=== PATIENT | female | born 1960 | race Caucasian/White ===

== ENCOUNTER 2020-08-25 19:53 | Emergency (ER) | payer SELFPAY ==
[2020-08-25] MEDS ORDERED: ACETAMINOPHEN WITH CODEINE 1 TAB TAB ONE (22:10)
[2020-08-25] MEDS ORDERED: KETOROLAC 30MG VIAL (30MG/ML) ONE (22:10)
== END 2020-08-25 22:25 | disposition home or self-care (01) ==
LOC: EDH 19:53
DX: S80.01XA Contusion of right knee, initial encounter (principal); R51.9 Headache, unspecified; M54.2 Cervicalgia; I10 Essential (primary) hypertension; Z88.1 Allergy status to other antibiotic agents; Z88.2 Allergy status to sulfonamides; Z90.49 Acquired absence of other specified parts of digestive tract; W17.89XA Other fall from one level to another, initial encounter; Y93.89 Activity, other specified; Y92.89 Other specified places as the place of occurrence of the external cause; Y99.8 Other external cause status
CPT/HCPCS: 73562; 96372; 99283; J1885